=== PATIENT | male | born 1960 | race Caucasian/White ===

== ENCOUNTER 2019-05-22 21:55 | Inpatient (IN) | payer SELFPAY ==
[~2019-05-22] VITALS: Ht 182.9 cm; Wt 58.1 kg
--- NOTE | 2019-05-22 22:06 | NUR ---
TO BED 14 BIB PARAMEDICS C/O ALTERED ETOH PER EMS REPORT, R SIDE FOREHEAD LACERATION, R EYE HEMATOMA. PT CONFUSED, INCOMPREHENSIBLE WORDS. NO ACUTE DISTRESS NOTED, RESP EVEN AND UNLABORED. NOTED PT WITH PINPOINT PUPILS. PLACE PT ON CARDIAC MONITORING, CONTINUOUS POX. PENDING ER MD [place].
[2019-05-22] MEDS ORDERED: IV NS 0.9% 1,000 ML BAG IV ONE (22:30)
[2019-05-22 22:41] LABS: BASOPHILS # (AUTO) 0.1 /CMM (0.0-0.2); BASOPHILS % (AUTO) 0.5 % (0.0-2.0); EOSINOPHILS % (AUTO) 0.1 % (0.0-6.0); HEMATOCRIT 40 % (39-51); HEMOGLOBIN 12.7 g/dL (13.5-17.5); LYMPHOCYTES # (AUTO) 0.5 /CMM (0.8-4.8); LYMPHOCYTES % (AUTO) 2.9 % (20.0-44.0); MEAN CORPUSCULAR HGB CONC 32 g/dl (31.0-36.0); MEAN CORPUSCULAR VOLUME 98 fL (80-96); MONOCYTES # (AUTO) 0.8 /CMM (0.1-1.30); NEUTROPHILS # (AUTO) 15.1 /CMM (1.8-8.9); NEUTROPHILS % (AUTO) 91.5 % (43.0-81.0); PLATELET COUNT (AUTO) 218 /CMM (150-450); RED BLOOD CELL COUNT(AUTO) 4.05 MIL/uL (4.5-6.0); WHITE BLOOD COUNT (AUTO) 16.6 K/uL (4.3-11.0)
[2019-05-22 22:57] LABS: ALANINE AMINOTRANSFERASE 10 U/L (12-78); ALBUMIN 3.8 g/dL (3.4-5.0); ALCOHOL, BLOOD < 3 mg/dL (0-0); ALKALINE PHOSPHATASE 75 U/L (46-116); ASPARTATE AMINOTRANSFERASE 12 U/L (15-37); BILIRUBIN,DIRECT 0.1 mg/dL (0.0-0.2); BILIRUBIN,TOTAL 0.4 mg/dL (0.2-1.0); CALCIUM, SERUM 8.8 mg/dL (8.5-10.1); CARBON DIOXIDE 12 mmol/L (21-32); CHLORIDE 105 mmol/L (98-107); CREATININE 5.6 mg/dL (0.6-1.3); GLUCOSE 242 mg/dL (74-106); POTASSIUM 4.7 mmol/L (3.5-5.1); SODIUM SERUM 132 mmol/L (136-145)
[2019-05-22 22:58] LABS: ACETAMINOPHEN 0 ug/ml (10-30); SALICYLATE 1.5 mg/dL (2.8-20.0)
[2019-05-22 22:59] LABS: UREA NITROGEN, BLOOD 102 mg/dL (7-18)
--- NOTE | 2019-05-22 22:59 | NUR ---
BUN 102 CRITICAL RESULT
[2019-05-22] MEDS ORDERED: HALOPERIDOL LACTATE INJ 5 MG/ML VIAL ONE (23:05)
[2019-05-22] MEDS ORDERED: LIDOCAINE 2% JEL UROJET 10 ML MM ONE (23:05)
[2019-05-22 23:07] LABS: THYROID STIMULATING HORMONE 5.037 uIU/mL (0.358-3.74)
[2019-05-22] MEDS ORDERED: HALOPERIDOL LACTATE INJ 5 MG/ML VIAL IV ONE (23:30)
--- NOTE | 2019-05-22 23:33 | NUR ---
PT TAKEN TO CT.
[2019-05-22 23:35] LABS: APPEARANCE,URINE CLOUDY (CLEAR); COLOR,URINE YELLOW (YELLOW); PH,URINE 6.5 (5.0-8.0)
[2019-05-22 23:36] LABS: BLOOD, URINE 3+ Ery/uL (NEGATIVE); PROTEIN,URINE 3+ mg/dl (NEGATIVE); UGLUCOSE NEGATIVE (NEGATIVE)
[2019-05-22 23:37] LABS: BILIRUBIN,URINE NEGATIVE (NEGATIVE); KETONES,URINE NEGATIVE (NEGATIVE); LEUKOCYTE ESTERASE ,URINE 3+ (NEGATIVE); NITRITE, URINE NEGATIVE (NEGATIVE); UROBILINOGEN,URINE 0.2 EU/dL (0.2)
--- NOTE | 2019-05-22 23:49 | NUR ---
PT BACK FROM RADIOLOGY. PENDING CT HEAD RESULT. PLACE PT BACK ON CARDIAC MONITORING, CONTINUOUS POX.
--- NOTE | 2019-05-22 23:50 | NUR ---
RADIOLOGIST TALKING TO ER MD TOLEDO REGARDING CT RESULT.
[2019-05-23] MEDS ORDERED: LIDOCAINE 2% JEL UROJET 10 ML MM ONE
[2019-05-23 00:03] LABS: WBC,URINE TOO NUMEROUS TO COUN /HPF (0-3)
[2019-05-23 00:04] LABS: BACTERIA,URINE Few /HPF (None Seen); SQUAMOUS EPITHELIAL CELL,UR Rare /HPF (None Seen)
--- NOTE | 2019-05-23 00:05 | NUR ---
RT AT BEDSIDE FOR ABG.
[2019-05-23 00:09] LABS: ABG BASE EXCESS -22.1 mmol/L; ABG OXYGEN SATURATION 61.1 % (92.0-98.5); ABG PCO2 43.4 mmHg (35.0-45.0); ABG PH 6.952 (7.350-7.450); ABG PO2 31.9 mmHg (75.0-100.0); AaDO2 65.9 mmHg; COHb 0.8 % (0.5-1.5); MetHb 0.3 % (0.0-1.5); O2Hb 60.4 % (94.0-97.0); SITE, ABG Right Radial; VENT MODE, BG RA
[2019-05-23] MEDS ORDERED: LIDOCAINE 1%-EPI 1:100,000 20 ML VIAL ONE (00:20)
[2019-05-23] MEDS ORDERED: Sodium Bicarbonate 150 MEQ in IV D5/0.45 NACL 1,000 ML IV PRN (00:30)
[2019-05-23] MEDS ORDERED: SODIUM BICARBONATE SYR 50 MEQ/50 ML DISP.SYRIN ONE ×2 (00:32→02:00)
--- NOTE | 2019-05-23 01:16 | NUR ---
REPORT CALLED TO [facility]. WILL TRANSPORT PT VIA ACLS PROTOCOL.
--- NOTE | 2019-05-23 01:23 | NUR ---
ER MD AT BEDSIDE FOR LACERATION REPAIR.
[2019-05-23] MEDS ORDERED: FOMEPIZOLE 1.5 G in IV D5W 100 ML IV ONE (01:30)
--- NOTE | 2019-05-23 01:30 | NUR ---
DR TOLEDO AT BEDSIDE FOR STURE
[2019-05-23] MEDS ORDERED: DEXTROSE 50%-WATER 50 ML DISP.SYRIN ONE (02:00)
[2019-05-23] MEDS ORDERED: EPINEPHRINE (1:10,000) SYRINGE 1 MG/10 ML DISP.SYRIN ONE (02:00)
[2019-05-23] MEDS ORDERED: CALCIUM CHLORIDE 1,000 MG/10 ML DISP.SYRIN ONE (02:00)
[2019-05-23] MEDS ORDERED: ATROPINE SULFATE 1 MG/10 ML DISP.SYRIN ONE (02:00)
[2019-05-23] MEDS ORDERED: LIDOCAINE 1%-EPI 1:100,000 20 ML VIAL TP ONE (02:00)
[2019-05-23] MEDS ORDERED: IV NS 0.9% 1,000 ML IV PRN (02:43)
[2019-05-23 03:00] VITALS: BP_SYST 119; BP_SYST 87; BP_DIAS 41; BP_DIAS 66
[2019-05-23] MEDS ORDERED: MORPHINE SULFATE INJ 2 MG/ML DISP.SYRIN IV PRN (03:00)
[2019-05-23] MEDS ORDERED: FOMEPIZOLE 1.5 G in IV D5W 100 ML IV SCH (03:00)
[2019-05-23] MEDS ORDERED: LEVOFLOXACIN 500 MG /D5W 100ML 500 MG in PREMIX 1 EA IV SCH (03:00)
[2019-05-23] MEDS ORDERED: LABETALOL HCL IV 100MG VIAL IV PRN (03:00)
[2019-05-23] MEDS ORDERED: METRONIDAZOLE 500MG/ NS 100ML 500 MG in PREMIX 1 EA IV SCH (03:00)
[2019-05-23] MEDS ORDERED: NOREPINEPHRINE 8 MG in IV D5W 500 ML IV PRN (03:00)
[2019-05-23] MEDS ORDERED: ONDANSETRON HCL/PF 4 MG/2 ML VIAL IVP PRN (03:00)
[2019-05-23] MEDS ORDERED: INSULIN REGULAR, HUMAN 100 UNIT in IV NS 0.9% 99 ML IV PRN ×2 (03:00)
[2019-05-23] MEDS ORDERED: SODIUM BICARBONATE SYR 100 MEQ in IV NS 0.9% 1,000 ML IV PRN (03:00)
[2019-05-23 03:10] VITALS: BP 119/66
[2019-05-23 03:30] VITALS: BP 107/66
[2019-05-23] MEDS ORDERED: FOMEPIZOLE IV ONE (03:30)
[2019-05-23] MEDS ORDERED: phenytoin SODIUM IV 1,000 MG in IV NS 0.9% 100 ML IV ONE (03:30)
[2019-05-23] MEDS ORDERED: D5W IV ONE (03:30)
--- NOTE | 2019-05-23 03:30 | NUR ---
RN NOTES 02:28 AM - ADMITTED A 58 Y/O MALE PATIENT FROM ER DIAGNOSED WITH INTRACRANIAL HEMORRHAGE/SUBDURAL HEMATOMA WHICH FOUND ON CAT SCAN. UNKNOWN HISTORY DUE TO PATIENT FOUND IN THE STREET BYSTANDARDS. PRESENT WITH 5 STITCHES ON RIGHT FOREHEAD, RIGHT HEMATOMA. AND BILATERAL UPPER EXTREMITIES SCATTERED BRUISE. PATIENT IS ALTERED RESPONSIVE TO SPEECH ANSWERED YES BUT UNABLE TO FOLLOWS COMMAND AND ABLE TO MOVE EXT. TELE MONITOR PLACED WITH ACCELERATED JUNCTIONAL RHYTHM HR 100. AFEBRILE. IV SITE ON LH G 18 AND LFA G 18 WITH ONGOING BICARB @ 250 ML/HR. VSS TEMP 97.5 BP 119/66 SATURATION 95% IN ROOM AIR. BURGESS CATH INSERTED ORDERED WITH YELLOWISH SEDIMENTED OUTPUT. KEPT PT CLEAN AND DRY. BED ALARM ON. BED IN LOCKED AND IN LOWEST POSSIBLE POSITION. WILL CLOSELY TO MONITOR.
[2019-05-23] MEDS ORDERED: LEVOFLOXACIN 500 MG /D5W 100ML 100 ML IV ONE (03:49)
[2019-05-23] MEDS ORDERED: METRONIDAZOLE 500MG/ NS 100ML 100 ML IV ONE (03:49)
[2019-05-23 04:00] VITALS: BP 149/93
[2019-05-23 04:30] VITALS: BP 106/68
[2019-05-23] MEDS: BLOOD SUGAR DIAGNOSTIC 1 EACH STRIP IN SCH ×2 (04:36→05:08)
[2019-05-23] MEDS ORDERED: INSULIN REGULAR, HUMAN 100 UNIT/ML 3 ML VIAL ONE ×2 (04:40→04:52)
[2019-05-23 04:47] LABS: BASOPHILS % (AUTO) 0.1 % (0.0-2.0); HEMATOCRIT 33 % (39-51); HEMOGLOBIN 10.5 g/dL (13.5-17.5); LYMPHOCYTES # (AUTO) 0.3 /CMM (0.8-4.8); LYMPHOCYTES % (AUTO) 2.6 % (20.0-44.0); MEAN CORPUSCULAR HGB CONC 32 g/dl (31.0-36.0); MEAN CORPUSCULAR VOLUME 97 fL (80-96); MONOCYTES # (AUTO) 0.6 /CMM (0.1-1.30); MONOCYTES % (AUTO) 5.7 % (2.0-12.0); NEUTROPHILS # (AUTO) 10.1 /CMM (1.8-8.9); NEUTROPHILS % (AUTO) 91.6 % (43.0-81.0); PLATELET COUNT (AUTO) 151 /CMM (150-450); RED BLOOD CELL COUNT(AUTO) 3.35 MIL/uL (4.5-6.0); WHITE BLOOD COUNT (AUTO) 11.1 K/uL (4.3-11.0)
[2019-05-23 05:00] VITALS: BP 94/50
[2019-05-23] MEDS ORDERED: PHENYTOIN SODIUM IV 50 MG/ML VIAL IV SCH (05:00)
[2019-05-23] MEDS ORDERED: phenytoin SODIUM IV 250 MG/5 ML VIAL IV ONE (05:02)
[2019-05-23 05:12] LABS: ALBUMIN 3.2 g/dL (3.4-5.0); BILIRUBIN,TOTAL 0.3 mg/dL (0.2-1.0); CREATININE 5.3 mg/dL (0.6-1.3); POTASSIUM 4.7 mmol/L (3.5-5.1); TOTAL PROTEIN, SERUM 7.5 g/dL (6.4-8.2)
[2019-05-23] MEDS ORDERED: LIDOCAINE 100MG/5ML DISP SYR ONE (05:43)
[2019-05-23] MEDS ORDERED: BLOOD SUGAR DIAGNOSTIC 1 EACH STRIP IN SCH ×3 (06:00→07:30)
[2019-05-23 06:17] LABS: THYROID STIMULATING HORMONE 3.455 uIU/mL (0.358-3.74)
--- NOTE | 2019-05-23 08:00 | NUR ---
RN NOTES 05:28 AM - NOTED PATIENT HR DECREASING TO 54 TO 30'S , PATIENT IS UNRESPONSIVE, SINUS ARMINDA HR 35, UNRESPONSIVE , NO PULSE. CODE BLUE CALLED AND ACLS INITIATED AT THE SAME TIME. DR. TOLEDO RUN THE CODE, WITH ICU CHARGE NURSE, RT'S AND RN'S. 05:35 AM - ETT INSERTED, STILL PEA ON TELE MONITOR. PATIENT WENT TO V- FIB , SHOCK IS GIVEN AND REMAINS VFIB. AND ASYSTOLE. CODE UNSUCCESSFUL, PRONOUNCED @ 05:[address] TOLEDO. HEMA MIMS ,CELL RELINER AT BEDSIDE AWARE REGARDING EXPIRATION. POST MORTEM CARE DONE BY RN'S 05:50 AM - DUTCH RAPP INFORMED 06:00 AM - LEWIS MATTHEWS ADMITTING AWARE. 06:13 AM - CALLED [facility] SPOKE TO Juni RO AND REPORTED ABOUT THE PATIENT. REQUESTED TO HAVE A BLOOD SAMPLE IN A PURPLE TOP. CALLED LAB AND SPOKE TO ALEJA ASIF REGARDING THE CORONERS REQUESTED [facility] CASE # [id number] GIVEN. FYI: PER YEFRI PURPLE TOP WILL BE ENDORSED TO NEXT LAB , AND Juni ( [facility]) AWARE WHERE TO GET THE REQUEST AND PHONE NUMBER GIVEN 06:35 AM - CALLED [facility] SPOKE TO ALBERTO GLASGOW AND REPORT THE PATIENT . CASE# [id number] GIVEN. 07:00 AM - BODY PLACED IN [facility] BY RN AND SECURITY 08:44 AM - [facility] CALLED SPOKE TO KIET MCDONALD AND GAVE THE CORONERS CASE NUMBER. STATED TO WAIT UNTIL 1 - 1 1/2 HOUR TO CHECK IF THEY CAN STILL FIND THE IDENTIFICATION OF THIS PATIENT. ALL REPORT ENDORSED TO AM SHIFT.
[2019-05-23] MEDS ORDERED: PANTOPRAZOLE 40 MG VIAL IV SCH (09:00)
[2019-05-23] MEDS ORDERED: LANOLIN/MIN OIL/PETROLAT,WHT 3.5 GM TUBE EACHEYE SCH (09:00)
[2019-05-23] MEDS ORDERED: DOCUSATE SODIUM 100 MG CAPSULE PO SCH (09:00)
[2019-05-23] MEDS ORDERED: SIMVASTATIN 40 MG TABLET PO SCH (22:00)
== END 2019-05-23 05:45 | disposition expired | DRG 917 ==
LOC: ER 21:57 → ICU 05-23 01:46
PROVIDERS: ADMIT Registered Nurse; ATTEND Registered Nurse
PROC: 0BH17EZ Insertion of Endotracheal Airway into Trachea, Via Natural or Artificial Opening (ICD-10-PCS; principal; 2019-05-23)
PROC: 5A12012 Performance of Cardiac Output, Single, Manual (ICD-10-PCS; principal; 2019-05-23)
PROC: 0HQ1XZZ Repair Face Skin, External Approach (ICD-10-PCS; principal; 2019-05-23)
DX: T59.891A Toxic effect of other specified gases, fumes and vapors, accidental (unintentional), initial encounter (principal); S06.5X0A Traumatic subdural hemorrhage without loss of consciousness, initial encounter; G92 Toxic encephalopathy; J69.0 Pneumonitis due to inhalation of food and vomit; E43 Unspecified severe protein-calorie malnutrition; R40.2222 Coma scale, best verbal response, incomprehensible words, at arrival to emergency department; E87.2 Acidosis; E87.1 Hypo-osmolality and hyponatremia; N39.0 Urinary tract infection, site not specified; N17.9 Acute kidney failure, unspecified; Z68.1 Body mass index [BMI] 19.9 or less, adult; F10.129 Alcohol abuse with intoxication, unspecified; Y92.89 Other specified places as the place of occurrence of the external cause; W18.30XA Fall on same level, unspecified, initial encounter; Z59.0 Homelessness; R40.2142 Coma scale, eyes open, spontaneous, at arrival to emergency department; R40.2362 Coma scale, best motor response, obeys commands, at arrival to emergency department; E88.09 Other disorders of plasma-protein metabolism, not elsewhere classified; S01.81XA Laceration without foreign body of other part of head, initial encounter; I46.9 Cardiac arrest, cause unspecified; Y09 Assault by unspecified means
CPT/HCPCS: 36415; 36600; 70450-TC; 71045-TC; 72125-TC; 80048-TC; 80053-TC; 80061-TC; 80076-TC; 80305; 81000-TC; 82010-TC; 82693; 82803-TC; 82962-TC; 83605-TC; 83735-TC; 83935-TC; 84100-TC; 84443-TC; 85025-TC; 85385-TC; 85730-TC; 87040-TC; 87081-TC; 87086-TC; 87186-TC; A4216; C9113; G0378; G0480; J0171; J0461; J1165; J1451; J1630; J1815; J1956; J2001; J3490; J7030; J7060; L0172